=== PATIENT | female | born 1985 | race Caucasian/White ===

== ENCOUNTER 2018-01-02 14:50 | Emergency (ER) | payer BC ==
[2018-01-02 15:05] VITALS: BP 129/92
--- NOTE | 2018-01-02 15:17 | UC ---
Throat Pain/Nasal Byron HPI - HPI Summary HPI Summary: Scratchy sore throat on/off for 7 days--no fevers, "strep throat has been going around at work" - History of Current Complaint Chief Complaint: UCRespiratory Stated Complaint: SORE THROAT Time Seen by Provider: 01/02/18 15:11 Hx Obtained From: Patient Hx Last Menstrual Period: 12/20/17 ?: No Onset/Duration: Gradual Onset, Lasting Days - 7, Still Present Pain Intensity: 0 Cough: None - Allergies/Home Medications Allergies/Adverse Reactions: Allergies Allergy/AdvReac Type Severity Reaction Status Date / Time cortisone Allergy Swelling Verified 01/02/18 15:06 Penicillins Allergy Unknown Verified 01/02/18 15:06 Reaction Details PMH/Surg Hx/FS Hx/Imm Hx Previously Healthy: Yes - Chrons Disease - Surgical History Surgical History: Yes Surgery Procedure, Year, and Place: [id number] - Family History Known Family History: Positive: None - Social History Occupation: Employed Full-time Lives: With Family Alcohol Use: Occasionally Alcohol Amount: 3 Substance Use Type: None Smoking Status (MU): Never Smoked Tobacco Review of Systems Constitutional: Negative Skin: Negative Eyes: Negative ENT: Sore Throat Respiratory: Negative Cardiovascular: Negative Gastrointestinal: Negative Genitourinary: Negative Motor: Negative Neurovascular: Negative Musculoskeletal: Negative Neurological: Negative Psychological: Negative Is Patient Immunocompromised?: No All Other Systems Reviewed And Are Negative: Yes Physical Exam Triage Information Reviewed: Yes Appearance: Well-Appearing, No Pain Distress, Well-Nourished Vital Signs: Initial Vital Signs Temp 97.9 F 01/02/18 14:59 Pulse 98 01/02/18 14:59 Resp 18 01/02/18 14:59 BP 129/92 01/02/18 14:59 Pulse Ox 97 01/02/18 14:59 Vital Signs Reviewed: Yes Eye Exam: Normal Eyes: Positive: Conjunctiva Clear ENT Exam: Normal ENT: Positive: Normal ENT inspection, Hearing grossly normal, Pharyngeal erythema, Nasal congestion, TMs normal, Uvula midline. Negative: Trismus, Muffled voice, Hoarse voice, Dental tenderness, Sinus tenderness Dental Exam: Normal Neck exam: Normal Neck: Positive: Supple, Nontender, No Lymphadenopathy Respiratory Exam: Normal Respiratory: Positive: Chest non-tender, Lungs clear, Normal breath sounds, No respiratory distress, No accessory muscle use Cardiovascular Exam: Normal Cardiovascular: Positive: RRR, No Murmur, Pulses Normal, Brisk Capillary Refill Musculoskeletal Exam: Normal Musculoskeletal: Positive: Strength Intact, ROM Intact, No Edema Neurological Exam: Normal Neurological: Positive: Alert, Muscle Tone Normal Psychological Exam: Normal Skin Exam: Normal Diagnostics - Laboratory Diagnostic Studies Completed/Ordered: RST (-) Throat Pain/Nasal Course/Dx - Course Assessment/Plan: tylenol, ibuprofen, zinc clarisa. Moderate.phenol sprays, increase fluids, follow with pcp prn - Differential Dx/Diagnosis Provider Diagnoses: viral phaithryngitis Discharge - Sign-Out/Discharge Documenting (check all that apply): Discharge/Admit/Transfer - Discharge Plan Condition: Stable Disposition: AGAINST MEDICAL ADVICE Patient Education Materials: Pharyngitis (ED), Viral Syndrome (ED) Referrals: Yoselin Moscoso MD [Primary Care Provider] - If Needed - Billing Disposition and Condition Condition: STABLE Disposition: AMA
== END 2018-01-02 15:24 | disposition left against medical advice (07) ==
LOC: UCEAST 14:50
DX: J02.8 Acute pharyngitis due to other specified organisms (principal); Z88.0 Allergy status to penicillin; K50.90 Crohn's disease, unspecified, without complications
CPT/HCPCS: 87651; 99211; G0463

== ENCOUNTER 2018-12-11 11:36 | Emergency (ER) | payer BC ==
[2018-12-11 11:47] VITALS: BP 118/77
--- NOTE | 2018-12-11 12:40 | UC ---
Throat Pain/Nasal Byron HPI - HPI Summary HPI Summary: started with ST yesterday, today feels much worse - History of Current Complaint Chief Complaint: UCRespiratory Stated Complaint: SORE THROAT Time Seen by Provider: 12/11/18 12:10 Hx Obtained From: Patient Hx Last Menstrual Period: 12/03/18 ?: No Onset/Duration: Sudden Onset Severity: Moderate Pain Intensity: 8 Cough: None Associated Signs & Symptoms: Positive: Fever. Negative: Sinus Discomfort - Allergies/Home Medications Allergies/Adverse Reactions: Allergies Allergy/AdvReac Type Severity Reaction Status Date / Time cortisone Allergy Swelling Verified 12/11/18 11:47 Penicillins Allergy Unknown Verified 12/11/18 11:47 Reaction Details Home Medications: Home Medications Dm/PE/Acetaminophen/Doxylamine [Vicks Nyquil Severe Cold-Flu] 15 ml PO ONCE PRN 12/11/18 [History Confirmed 12/11/18] PMH/Surg Hx/FS Hx/Imm Hx Previously Healthy: Yes GI/ History: Other - UC - Surgical History Surgical History: Yes Surgery Procedure, Year, and Place: [id number] - Family History Known Family History: Positive: None - Social History Occupation: Employed Full-time Lives: With Family Alcohol Use: Occasionally Alcohol Amount: 3 Substance Use Type: None Smoking Status (MU): Never Smoked Tobacco Review of Systems All Other Systems Reviewed And Are Negative: Yes Skin: Positive: Negative ENT: Positive: Sore Throat Respiratory: Positive: Negative Cardiovascular: Positive: Negative Neurological: Negative: Headache Psychological: Positive: Negative Is Patient Immunocompromised?: No Physical Exam Triage Information Reviewed: Yes Appearance: Well-Appearing, No Pain Distress, Well-Nourished Vital Signs: Initial Vital Signs Temp 99.1 F 12/11/18 11:44 Pulse 90 12/11/18 11:44 Resp 18 12/11/18 11:44 BP 118/77 12/11/18 11:44 Pulse Ox 100 12/11/18 11:44 Vital Signs Reviewed: Yes Eyes: Positive: Conjunctiva Clear ENT: Positive: Pharyngeal erythema, TMs normal Neck exam: Normal Neck: Positive: No Lymphadenopathy Respiratory Exam: Normal Cardiovascular Exam: Normal Neurological Exam: Normal Psychological Exam: Normal Skin Exam: Normal Skin: Negative: Rashes Throat Pain/Nasal Course/Dx - Differential Dx/Diagnosis Differential Diagnosis/HQI/PQRI: Influenza, Tonsillitis, URI Provider Diagnosis: Strep throat Discharge - Sign-Out/Discharge Documenting (check all that apply): Patient Departure All imaging exams completed and their final reports reviewed: No Studies - Discharge Plan Condition: Good Disposition: HOME Prescriptions: Azithromycin TAB* [Zithromax TAB (Z-LEXY) 250 mg #6 tabs] 2 tab PO .TODAY, THEN 1 DAILY #1 lexy Patient Education Materials: Strep Throat (ED) Referrals: Yoselin Moscoso MD [Primary Care Provider] - 3 Days (recheck throat if no better) Additional Instructions: drink plenty of fluids and start antibiotic use ibuprofen 600mg every 6 hours as needed for pain - Billing Disposition and Condition Condition: GOOD Disposition: Home
== END 2018-12-11 12:46 | disposition home or self-care (01) ==
LOC: UCEAST 11:36
DX: J02.0 Streptococcal pharyngitis (principal); Z88.0 Allergy status to penicillin; Z88.8 Allergy status to other drugs, medicaments and biological substances
CPT/HCPCS: 87651; 99212; G0463